=== PATIENT | female | born 1955 | race Caucasian/White ===

== ENCOUNTER 2024-11-09 12:00 | Emergency (ER) | payer MEDICAID ==
[~2024-11-09] VITALS: Ht 152.4 cm; Wt 79.9 kg
[2024-11-09 12:25] LABS: PLATELET COUNT (AUTO) 291 K/uL (150-450); RED BLOOD CELL COUNT(AUTO) 4.77 MIL/uL (4.0-5.2); RED CELL DISTRIBUTION WIDTH 13.3 % (11.5-15.0); WHITE BLOOD COUNT (AUTO) 6.9 K/uL (4.3-11.0)
[2024-11-09 12:31] LABS: CALCIUM, SERUM 9.4 mg/dL (8.5-10.1); CREATININE 0.8 mg/dL (0.6-1.3); SODIUM SERUM 134 mmol/L (136-145); UREA NITROGEN, BLOOD 23 mg/dL (7-18)
[2024-11-09] MEDS ORDERED: CHOL100062 PO (13:14)
[2024-11-09] MEDS ORDERED: IBAN150T16 PO (13:14)
[2024-11-09] MEDS ORDERED: LEVO25TA76 PO (13:14)
[2024-11-09] MEDS ORDERED: OLME1TAB88 PO (13:14)
[2024-11-09] MEDS ORDERED: METF-440 PO (13:14)
[2024-11-09] MEDS ORDERED: AMLO5TAB4 PO (13:14)
[2024-11-09] MEDS ORDERED: BISO5TAB20 PO (13:14)
[2024-11-09 14:03] VITALS: BP 136/80; TEMP 98.5; O2SAT 99
== END 2024-11-09 14:04 | disposition home or self-care (01) ==
LOC: ER 12:09
DX: R55 Syncope and collapse (principal); R07.89 Other chest pain; I10 Essential (primary) hypertension; E11.9 Type 2 diabetes mellitus without complications; Z79.84 Long term (current) use of oral hypoglycemic drugs; Z79.890 Hormone replacement therapy; Z79.899 Other long term (current) drug therapy
CPT/HCPCS: 36415; 71045-TC; 80048-TC; 84484-TC; 85025-TC